=== PATIENT | male | born 2000 | race African-American/Black ===

== ENCOUNTER 2019-10-26 12:51 | Day surgery (SDC) | payer OTHER ==
--- NOTE | 2019-10-22 12:01 | RADIOLOGY REPORT (SQ) ---
EXAM DESCRIPTION: CHEST PA/LATERAL IMAGES COMPLETED DATE/TIME: 10/22/2019 11:54 am REASON FOR STUDY: PRE-OP COMPARISON: None. EXAM PARAMETERS: NUMBER OF VIEWS: two views TECHNIQUE: Digital Frontal and Lateral radiographic views of the chest acquired. RADIATION DOSE: NA LIMITATIONS: Lateral film is limited. Patient was unable to raise her arm. FINDINGS: LUNGS AND PLEURA: No opacities, masses or pneumothorax. No pleural effusion. MEDIASTINUM AND HILAR STRUCTURES: No masses or contour abnormalities. HEART AND VASCULAR STRUCTURES: Heart normal size. No evidence for failure. BONES: No acute findings. HARDWARE: None in the chest. OTHER: No other significant finding. IMPRESSION: NO SIGNIFICANT RADIOGRAPHIC FINDING IN THE CHEST. TECHNICAL DOCUMENTATION: JOB ID: [id number] 2010 [employer]- All Rights Reserved Reading location - IP/workstation name: [email or web address]
[2019-10-22 13:12] LABS: AMORPHOUS SEDIMENT,URINE TRACE /HPF; APPEARANCE,URINE CLOUDY; BILIRUBIN,URINE NEGATIVE (NEGATIVE); COLOR,URINE AMBER; GLUCOSE, URINE NEGATIVE (NEGATIVE); KETONES,URINE 20 mg/dL (NEGATIVE); LEUKOCYTE ESTERASE,URINE NEGATIVE (NEGATIVE); NITRITE,URINE NEGATIVE (NEGATIVE); PROTEIN,URINE 100 mg/dL (NEGATIVE); URINE SPECIFIC GRAVITY 1.031; UROBILINOGEN,URINE NEGATIVE mg/dL (<2.0)
--- NOTE | 2019-10-22 16:38 | EKG REPORT ---
SEVERITY:- NORMAL ECG - SINUS RHYTHM ST ELEV, PROBABLE NORMAL EARLY REPOL PATTERN : Confirmed by: Wade Becerra MD 22-Oct-2019 16:38:14
[2019-10-25 11:02] LABS: ANION GAP 9 (5-19); BLOOD UREA NITROGEN 15 mg/dL (7-20); CALCIUM 9.7 mg/dL (8.4-10.2); CARBON DIOXIDE 31 mmol/L (22-30); CHLORIDE 103 mmol/L (98-107); GLUCOSE 99 mg/dL (75-110); POTASSIUM 4.7 mmol/L (3.6-5.0)
[~2019-10-26 12:51] MED LIST: CEFAZOLIN 2 GM/D5W RTU 2 GM/50 ML RTUPB IV PRN; FENTANYL CITRATE INJ/PF 100 MCG/2 ML AMPUL ONE; FENTANYL CITRATE INJ/PF 250 MCG/5 ML AMPULE ONE; MIDAZOLAM 2 MG/2 ML INJ ONE; ONDANSETRON HCL INJ/PF 4 MG/2 ML SDV ONE; PROPOFOL INJ 200 MG/20 ML VIAL IV ONE; SUCCINYLCHOLINE CHLORIDE INJ 200 MG/10 ML VIAL ONE
[2019-10-26] MEDS ORDERED: LIDOCAINE 1% INJ-PF (10 MG/ML) 30 ML SDV ONE (14:47)
[2019-10-26 15:09] LABS: HEMATOCRIT 43.2 % (37.9-51.0); HEMOGLOBIN 14.8 g/dL (13.5-17.0); MEAN CORPUSCULAR HEMOGLOBIN 29.9 pg (27.0-33.4); MEAN CORPUSCULAR HGB CONC 34.3 g/dL (32.0-36.0); MEAN CORPUSCULAR VOLUME 87 fl (80-97); PLATELET COUNT 187 10^3/uL (150-450); RED BLOOD COUNT 4.95 10^6/uL (4.35-5.55); RED CELL DISTRIBUTION WIDTH 13.1 % (11.5-14.0); WHITE BLOOD COUNT 9.1 10^3/uL (4.0-10.5)
[2019-10-26] MEDS ORDERED: CEFAZOLIN 2 GM/D5W RTU 2 GM/50 ML RTUPB IV ONE (15:31)
[2019-10-26] MEDS: BUPIVACAINE HCL 0.5 % INJ/PF 30 ML SDV ONE ×2 (16:47→18:36)
[2019-10-26] MEDS ORDERED: FENTANYL CITRATE INJ/PF 100 MCG/2 ML AMPUL IV PRN ×3 (16:48)
[2019-10-26] MEDS ORDERED: MEPERIDINE HCL/PF INJ 25 MG/1 ML DISP.SYRIN IV PRN (16:48)
[2019-10-26] MEDS ORDERED: DIPHENHYDRAMINE HCL 50 MG/ML VIAL IV PRN (16:48)
[2019-10-26] MEDS ORDERED: PROMETHAZINE HCL INJ 25 MG/1 ML VIAL IV PRN ×2 (16:48)
[2019-10-26] MEDS ORDERED: MORPHINE SULFATE 10 MG/ML INJ IV PRN (16:48)
[2019-10-26] MEDS ORDERED: FENTANYL CITRATE INJ/PF 100 MCG/2 ML AMPUL ONE (17:00)
[2019-10-26] MEDS ORDERED: DEXMEDETOMIDINE INJ 80 MCG/20 ML VIAL IV ONE (17:21)
[2019-10-26] MEDS ORDERED: MORPHINE SULFATE 10 MG/ML INJ ONE (17:22)
[2019-10-26] MEDS ORDERED: HYDROMORPHONE HCL INJ/PF 2 MG/ML AMPULE IV PRN (18:48)
[2019-10-26] MEDS ORDERED: OXYCODONE-ACETAMINOPHEN 5-325 MG TABLET PO PRN (18:48)
[2019-10-26] MEDS ORDERED: ONDANSETRON HCL INJ/PF 4 MG/2 ML SDV IV PRN (18:48)
--- NOTE | 2019-10-26 18:48 | Discharge Summary ---
Discharge Summary (SDC) - Discharge Final Diagnosis: Right femoral shaft fracture Date of Surgery: 10/26/19 Discharge Date: 10/26/19 Condition: Good Treatment or Instructions: Schedule Follow Up w/ Dr. Tony Nation @ [facility] for Surgery to be seen in 10-14 days or as scheduled [place]: [place]: [place]: Ice and elevate Keep splint clean/dry/intact, do not remove. If your fingers become numb please unwrap the Donaldo wrap but leave the splint in place, if the sensation does not return within 30 minutes please return to the emergency department. May begin finger range of motion attempting to make full fist. Please use ibuprofen (Motrin or Advil) 600-800 mg every 8 hours as needed for pain or fever DO NOT TAKE w/ TORADOL may use once TORADOL complete. You may also use acetaminophen (Tylenol) 1000 mg every 4-6 hours as needed for pain or fever. Please be aware that many medications contain acetaminophen, do not exceed a total of 1000 mg of acetaminophen every 6 hours. If ibuprofen and acetaminophen are not sufficient for your pain you may take the Percocet/Acworth. Please be aware that the Percocet/Acworth does contain Tylenol. Stool softener of choice when on pain medication. USE OF [id number] IBUPROFEN: Ibuprofen (Advil, Nuprin, Medipren, Motrin IB) is a medication for fever and pain control. In addition, it has anti- inflammatory effects which may be beneficial, especially in the treatment of injuries. It's best to take ibuprofen with food. Persons with ulcer disease or allergy to aspirin should notify their physician of this before taking ibuprofen. Ibuprofen can be given every four to six hours, for a total of four doses daily. Age Pain or fever dose Antiinflammatory dose 6-8 yr 200 mg (1 tab) 200 mg (1 tab) 9-11 yr 200 mg (1 tab) 200-400 mg (1-2 tab) 11-14 yr 200-400 mg (1-2 tab) 400 mg (2 tab) 15-adult 400 mg (2 tab) 600 mg (3 tab) ORAL NARCOTIC MEDICATION: You have been given a prescription for pain control. This medication is a narcotic. It's best taken with food, as nausea can result if taken on an empty stomach. Don't operate machinery or drive within six hours of taking this medication. Do not combine this medicine with alcohol, or with any medication which can cause sedation (such as cold tablets or sleeping pills) unless you get permission from the physician. Narcotics tend to cause constipation. If possible, drink plenty of fluids and eat a diet high in fiber and fruits. Please be aware that prescription narcotics also have the potential for abuse. People become addicted to these medications because of the general sense of wellbeing that they induce. This feeling along with a significant reduction in tension, anxiety, and aggression provides a stimulating seductive quality to these drugs. Once your pain is under control, we encourage you to discard your unused narcotics. Prescriptions: Oxycodone HCl/Acetaminophen [Percocet 7.5-325 mg Tablet] 1 tab PO Q6 PRN #25 tab PRN Reason: Discharge Diet: As Tolerated Respiratory Treatments at Home: Deep Breathing/Coughing, Incentive Spirometer Discharge Activity: No Lifting Over 10 Pounds, No Lifting/Push/Pulling Report the Following to Your Physician Immediately: Fever over 101 Degrees, Unusual Bleeding, Redness, Swelling, Warmth, Increased Soreness
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
[2019-10-27 08:25] VITALS: BP 132/65
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
== END 2019-10-27 11:18 | disposition home or self-care (01) ==
LOC: OROUT 12:51 → 4S 20:00 → OROUT 10-27 11:18
PROVIDERS: ATTEND Orthopaedic Surgery
DX: S42.302A Unspecified fracture of shaft of humerus, left arm, initial encounter for closed fracture (principal); S52.225A Nondisplaced transverse fracture of shaft of left ulna, initial encounter for closed fracture; V89.2XXA Person injured in unspecified motor-vehicle accident, traffic, initial encounter; Z03.818 Encounter for observation for suspected exposure to other biological agents ruled out
CPT/HCPCS: 24515; 25535; 93005; 36415 ×2; 85027; 87635; 80048; 81001; 71046; 73060; 93010; 01740; C1713 ×5; J2250; J3490 ×2; J3010 ×2; J2270; J0330; J2405; J2704; J0690; C9803